=== PATIENT | female | born 1995 | race Caucasian/White ===

== ENCOUNTER 2018-01-30 11:48 | Day surgery (SDC) | payer BC ==
[~2018-01-30] VITALS: Ht 170.2 cm; Wt 69.4 kg
[~2018-01-30 11:48] MED LIST: MINOCIN100 MG PO
[2018-01-30 12:39] VITALS: BP 122/74
[2018-01-30 12:40] VITALS: BP 122/74
[2018-01-30] MEDS ORDERED: HYDROCODON-ACE1 EAC7 PO (15:09)
[2018-01-30 15:59] VITALS: BP 116/67
[2018-01-30 16:51] VITALS: BP 106/66
== END 2018-01-30 16:54 | disposition home or self-care (01) ==
LOC: SDC 11:48
PROVIDERS: Surgery
PROC: 0HBT0ZX Excision of Right Breast, Open Approach, Diagnostic (ICD-10-PCS; principal; 2018-01-30)
DX: D24.1 Benign neoplasm of right breast (principal)
CPT/HCPCS: 81025; 88305; J0131; J1100; J1200; J2250; J2405; J3010; S0020